=== PATIENT | female | born 1960 | race Caucasian/White ===

== ENCOUNTER 2016-06-27 12:15 | Emergency (ER) | payer BC, OTHER ==
[~2016-06-27] VITALS: Ht 167.6 cm; Wt 72.6 kg
--- NOTE | ~2016-06-27 | EKG ---
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
[~2016-06-27 12:15] MED LIST: PEPCID40 MG PO; PREDNISONE 20 M20 MG PO; ZYRTEC10 MG PO
[2016-06-27] MEDS ORDERED: FLUOXETINE HCL40 MG PO (12:26)
[2016-06-27] MEDS ORDERED: TOPAMAX 100 MG100 MG PO (12:26)
[2016-06-27] MEDS ORDERED: LISINOPRIL30 MG PO (12:26)
[2016-06-27] MEDS ORDERED: LIPITOR 20 MG T20 M1 PO (12:26)
[2016-06-27] MEDS ORDERED: EPIPEN 2-P0.3 MG/0.3 IM (12:27)
[2016-06-27 13:09] LABS: HEMOGLOBIN 14.4 gm/dL (12.0-15.0); MCH 32.3 pg (26.0-34.0); MCHC 34.3 g/dL (28.0-37.0); MCV 94.2 fL (80.0-100.0); PLATELET COUNT 265 thou/uL (150-400); RBC 4.46 mil/uL (4.20-5.00); RDW 13.2 % (10.5-14.5)
[2016-06-27 13:11] LABS: MANUAL DIFF YES
[2016-06-27 13:15] LABS: CALCIUM 8.2 mg/dL (8.5-10.1); CREATININE 0.9 mg/dL (0.6-1.0); POTASSIUM 3.8 mmol/L (3.5-5.1)
[2016-06-27 13:20] LABS: ALBUMIN 3.6 g/dL (3.4-5.0); TOTAL BILIRUBIN 0.6 mg/dL (<0.1-1.0)
[2016-06-27 13:34] LABS: ABSOLUTE NEUTROPHILS 7.7 thou/uL (1.4-8.2); TOTAL CELL COUNT 100
[2016-06-27 14:17] LABS: URINE BILIRUBIN NEGATIVE (Negative); URINE BLOOD NEGATIVE (Negative); URINE COLOR YELLOW; URINE GLUCOSE-RANDOM* NEGATIVE (Negative); URINE KETONES 1+ (Negative); URINE NITRITE NEGATIVE (Negative); URINE PROTEIN (DIPSTICK) NEGATIVE (Negative); URINE UROBILINOGEN 0.2 E.U./dl (0.2-1.0)
[2016-06-27] MEDS ORDERED: ONDANSETRON HCL4 M2 PO (15:49)
[2016-06-27] MEDS ORDERED: LEVSIN0.125 MG PO (15:49)
[2016-06-27] MEDS ORDERED: NORCO 5-325 TA1 EACH PO (16:03)
[2016-06-27 17:20] VITALS: BP 146/77
== END 2016-06-27 17:20 | disposition home or self-care (01) ==
LOC: ER 12:15
PROVIDERS: Physician Assistant
DX: K52.9 Noninfective gastroenteritis and colitis, unspecified (principal); R07.9 Chest pain, unspecified; I10 Essential (primary) hypertension; M79.7 Fibromyalgia; E78.00 Pure hypercholesterolemia, unspecified; Z88.1 Allergy status to other antibiotic agents; Z88.8 Allergy status to other drugs, medicaments and biological substances; Z87.891 Personal history of nicotine dependence